=== PATIENT | male | born 1965 | race Caucasian/White ===

== ENCOUNTER 2024-08-25 05:47 | Day surgery (SDC) | payer OTHER, SELFPAY ==
[2024-08-25] VITALS (14 sets, daily range): BP systolic 112–135; BP diastolic 58–98; PULSE 58–90; RESP 16–18; TEMP 36.2–36.8; O2SAT 96–100; BMI 23.4
--- NOTE | 2024-08-25 05:57 | EKG12_ITS ---
Test Reason : PREOP Blood Pressure : */* mmHG Vent. Rate : 56 BPM Atrial Rate : 56 BPM P-R Int : 148 ms QRS Dur : 100 ms QT Int : 404 ms P-R-T Axes : 76 74 70 degrees QTcB Int : 389 ms Sinus bradycardia Otherwise normal ECG No previous ECGs available Confirmed by Hernandez Guidry ([id number]), multimedia editor PHOEBE ANNE ([id number]) on 08/27/2024 7:02:43 AM Referred By: Herbert De La Fuente Confirmed By: Hernandez Guidry
[2024-08-25] MEDS: 0.9% Normal Saline (1000mL) 1,000 ML 15 ML IV (06:47)
--- NOTE | 2024-08-25 06:58 | PCM.PRE.AN2 ---
ASA Classification* ASA Classification ASA Classification: 2 Assessment & Plan Anesthesia* Anesthesia Assessment Anesthesia Assessment: Discussed sedation and/or anesthesia options, risks, benefits, and alternatives with patient/parents/legal guardian/POA. Questions invited. The patient/parents/legal guardian/POA seems to understand and agrees to proceed with anesthesia plan. Reviewed the physical assessment, medical history, allergy history and patient home medications list prior to surgery/procedure/anesthetic and documented any changes. Performed airway and anesthesia risk assessments. 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 When Was Last Pacemaker Check QUESTION #4 FULL TEXT: You/Your Family Experience fever (hyperthermia) with Anesthesia Last Oral Intake Last Oral intake: Last Oral Intake NPO since 19:00 08/25/24 06:32 Meds taken in AM with sips of No 08/25/24 06:32 water? Meds patient instructed to take am of surgery PONV PONV - software test specialist: PONV - software test specialist Female No 08/11/24 14:18 HX of Motion Sickness Yes 08/11/24 14:18 HX of N/V After Surgery No 08/11/24 14:18 Non-Smoker Yes 08/11/24 14:18 Duration of Surgery greater Yes 08/11/24 14:18 than 60 minutes Number of Risk Factors 3 08/11/24 14:18 PONV Score Moderate Risk 08/11/24 14:18 Height & Weight Height & Weight: Anesthesia: Height & Weight Height 5 ft 9 in 08/25/24 06:32 Weight: 72 kg 08/25/24 06:32 Body Mass Index (BMI) 23.4 08/25/24 06:32 Respiratory Assessment Respiratory Assessment - software test specialist: Respiratory Tract Infection Hx - software test specialist Hx Respiratory Tract Infection No 08/11/24 14:18 STOP Sleep Apnea STOP Sleep Apnea - software test specialist: STOP Sleep Apnea - software test specialist Hx Hypertension No 08/11/24 14:18 Hx Sleep Apnea No 08/11/24 14:18 CPAP BIPAP Do you snore loudly (louder No 08/11/24 14:18 than talking or can be heard Do you often feel tired/ No 08/11/24 14:18 fatigued/ sleepy during daytime? Has anyone observed you stop No 08/11/24 14:18 breathing during sleep? STOP Results Negative 08/11/24 14:18 QUESTION #5 FULL TEXT : Do you snore loudly (louder than talking or can be heard through closed doors)? 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 Specify any problems Hx of Preganancy in last 3 N/A 08/11/24 14:18 Months Nurse Filling Out Transfusion DSCHRIBER 08/11/24 14:18 & Questions: Date: 08/11/24 08/11/24 14:18 Time: 14:19 08/11/24 14:18 Patient unable to answer at this time (ie. confused, unrespo /Reproduction History /Reproductive History - software test specialist: /Reproductive Hx- software test specialist Hx Now No 08/11/24 14:18 Gestational Age (in weeks): EDC: Hx Hx Para Hx Section SAB No 08/11/24 14:18 Active Medications Active Medications: Current Medications Generic Name Dose Route Start Last Admin Trade Name Freq PRN Reason Stop Dose Admin Clindamycin Phosphate 900 mg in 50 mls @ 75 mls/hr 08/25/24 07:30 Cleocin IV 08/25/24 08:09 PREOP ONE Sodium Chloride 1,000 mls @ 15 mls/hr 08/25/24 06:15 08/25/24 06:47 IV 08/30/24 19:34 15 mls/hr .Q48H NABILA Administration Protocol [facility] Medical History Wears glasses Alcohol use Back pain Difficulty swallowing Non-smoker Leg cramps Left inguinal hernia Home Medications ?Medication ?Instructions ?Recorded ?Last Taken ?Type ascorbic acid (vitamin C) 500 mg 500 mg PO DAILY 08/11/24 Unknown History tablet (C-500) pediatric multivitamin no.76 1 tab PO DAILY 08/11/24 Unknown History (Flintstones Complete chewable tablet) Allergy/AdvReac Type Severity Reaction Status Date / Time Penicillins Allergy Hives Verified 08/25/24 06:31 Surgical History Hx of tonsillectomy Social History Smoking Status: Never smoker alcohol intake: current alcohol intake frequency: holidays/special occasions only Alcohol type: beer substance use type: does not use Review of Systems (Anesthesia) ROS Narrative System reviewed and no additional complaints, except as documented.
--- NOTE | 2024-08-25 07:18 | PCM.HP.STD ---
HPI - General General Date of Admission: 08/25/24 Date of Service: 08/25/24 Chief Complaint: Left inguinal hernia HPI Narrative BENJAMIN VENTURA, is a 59 M who presents for left inguinal hernia repair - poss bilateral PFSH Medical History Wears glasses Alcohol use Back pain Difficulty swallowing Non-smoker Leg cramps Left inguinal hernia Home Medications ?Medication ?Instructions ?Recorded ?Last Taken ?Type ascorbic acid (vitamin C) 500 mg 500 mg PO DAILY 08/11/24 Unknown History tablet (C-500) pediatric multivitamin no.76 1 tab PO DAILY 08/11/24 Unknown History (Flintstones Complete chewable tablet) Allergy/AdvReac Type Severity Reaction Status Date / Time Penicillins Allergy Hives Verified 08/25/24 06:31 Surgical History Hx of tonsillectomy Social History Smoking Status: Never smoker alcohol intake: current alcohol intake frequency: holidays/special occasions only Alcohol type: beer substance use type: does not use Vital Signs Vital Signs Vital Signs: 08/25/24 06:32 08/25/24 06:32 08/25/24 06:59 Temperature 98.2 F 98.2 F Temperature Source Temporal Pulse Rate 58 L 58 L Respiratory Rate 18 18 Respiratory Pattern Normal Blood Pressure 116/71 116/71 Blood Pressure Mean 86 Blood Pressure Source Monitor Blood Pressure Position Semi-Fowlers Blood Pressure Location Right Arm Pulse Ox 99 99 Oxygen Delivery Method Room Air Weight Weight: 158 lb 11.725 oz Body Mass Index (BMI) 23.4 Physical Exam Const alert, oriented x3 and no apparent distress Assessment & Plan Assessment/Plan (1) Left inguinal hernia: PLAN: Plan robotic LIH repair - poss bilateral today Charges/Coding Visit Charges Inpatient E&M: 66873 Init Hosp L1
[2024-08-25] MEDS: Clindamycin 900 MG/50 ML BAG 75 MG IV (07:30)
[2024-08-25] MEDS: Gentamicin 80 MG/2 ML Vial (07:48)
[2024-08-25] MEDS: Bupiv/Epi 0.25% 30 ML Vial (09:25)
--- NOTE | 2024-08-25 09:48 | PCM.POST.ANE ---
Anesthesia: Postop Eval I Current Vital Signs Temperature: 97.2 F Pulse Rate: 87 Blood Pressure: 133/98 Respiratory Rate: 16 Pulse Ox: 98 Oxygen Delivery Method: Nasal Cannula (4) Oxygen Flow Rate (L/min): 4 Assessment Airway patent: Yes Spontaneous unlabored respirations: Yes Mental status: Calm and Asleep nausea: No Vomiting: No Anesthesia Complication: No Fluid Hydration Crystalloid volume administer (ml): 1,100 Total IV fluid infused: 1,100 Progress Note Anesthesia document: Postop Eval 1 completed: Yes
--- NOTE | 2024-08-25 09:52 | EX.PCM.DISCH ---
Discharge Instructions Diet Discharge Diet: Light diet - advance as tolerated Follow Up Care Test Results: Test results from this visit will be discussed in further detail at your follow-up appointment, if applicable. Discharge Plan Admission Primary Reason for Your Visit: Inguinal hernia repair surgery Attending Provider: Herbert De La Fuente Primary Care Provider: Care Physician,No Primary Instructions Print Language: Luxembourger Discharge Orders/Prescriptions Prescriptions: New oxycodone-acetaminophen [Percocet] 5-325 mg tablet 1 tab PO Q8H PRN (Reason: pain) 3 Days Qty: 10 0RF Continued Flintstones Complete Tablet,Chewable 1 tab PO DAILY ascorbic acid (vitamin C) [C-500] 500 mg tablet 500 mg PO DAILY Referrals / Follow Up: Care Physician,No Primary [Primary Care Provider] - Disposition Disposition (needs filled in before D/C Order can be placed): Home, Self Care
--- NOTE | 2024-08-25 09:55 | OP.PCM_ITS ---
Problems Associated Problem List Diagnoses (1) Bilateral inguinal hernia without obstruction or gangrene: Procedures Digestive 40xxx-49xxx: [id number] Lap ing hernia repair init Operative Report (Standard) Operative Information Date of Procedure: 08/25/24 Pre-Operative Diagnosis: Left inguinal hernia; possible bilateral Post-Operative Diagnosis: Bilateral inguinal hernia Surgery/Procedure Performed: Robotic assisted bilateral inguinal hernia repair with mesh multiple knife edge trimmer operator: Yes Machine Maintenance: David Hughes Tasks completed by administrative assistant data entry: Closing Additional surgical first assistant?: No Type of Anesthesia: General and Local RN Documented Start/Stop Times: Operation Date: 08/25/24 07:30 Case Time Into Pre-Op 08/25/24 06:13 Out of Pre-Op 08/25/24 07:25 Anesthesia Start 08/25/24 07:28 Into Room 08/25/24 07:28 Procedure Start 08/25/24 07:48 Procedure End 08/25/24 09:35 Anesthesia End 08/25/24 09:42 Out of Room 08/25/24 09:42 Into Recovery 08/25/24 09:45 Procedure Start Time: 07:48 Procedure Stop Time: 09:35 Select all DRAINS/GRAFTS/IMPLANTS that apply: Implanted device Implanted device details: ProGrip 15 x 10 mesh x 2 Special Medications: Ancef IV Estimated Blood Loss: 10 mL Specimen collected: No Description of surgery: The patient is a 59-year-old male who was recently seen through the office with a left inguinal hernia. I did not appreciate a right inguinal hernia however he was complaining of periodic right inguinal pain. I offered him a robotic assisted left inguinal hernia repair with mesh with possible bilateral repair. We discussed the details of the planned procedure including the risks benefits and alternatives. He wishes to proceed. The patient was brought to the operating today following informed consent preoperative antibiotics were given and a timeout was performed. He was placed supine on the operative table with arms initially outstretched on arm boards. A general anesthesia was induced. His arms were comfortably tucked at his side. The abdomen was then prepped and draped in the usual sterile manner. An 8 mm incision was made just above the umbilicus which a 5 mm trocar was placed optically. This was placed without incident. Once in place the abdomen is then fully insufflated with CO2 gas. No signs of bowel or vascular injury were noted once a 5 mm scope was inserted. Next an 8 mm trocar was placed on the right side of the abdomen along with another 8 mm trocar on the left side of the abdomen. Both of these were placed under direct visualization without difficulty. Finally the original 5 mm trocar was switched to an 8 mm trocar. The da Ubaldo robot was then brought into position and the trocars were docked. Camera was inserted through the midline incision. A ProGrasp was used in the left and scissors were placed on the right. The left inguinal hernia was identified. There was also a right inguinal hernia as well. Our plan was to proceed with bilateral repair. The left side was repaired first. This was performed by incising the peritoneum and a medial to lateral direction using scissors and electrocautery. A set peritoneal plane was then developed Juan Carlos's ligament was dissected out medially. The cord structures were identified this was a direct hernia this was reduced once this was reduced and sufficient dissection was performed, a ProGrip mesh was inserted. This was laid into position this laid nicely the peritoneum was then closed using V-Loc suture in a running manner this closed the peritoneum nicely. We then turned our attention to the right side. The peritoneum was incised in a lateral to medial direction again a set peritoneal plane was developed. Juan Carlos's ligament was dissected out medially. This was more of a larger indirect hernia. The hernia sac was off of the cord structures and the sac was eventually able to be reduced. The patient had a very large cord lipoma which was extracted. This was later removed through one of the trocar sites using a bag. Once sufficient dissection was performed a ProGrip 10 x 15 mesh was selected it was laid into position the peritoneum was then closed again in a running manner using a V-Loc suture. The there was an opening in the peritoneum that required Vicryl to close this defect. Once this was performed this was closed nicely Surgical Findings: Bilateral inguinal hernias Complications Complications: No Admit VTE Documentation VTE Present on Admission: No VTE Mechan Device Prophylaxis: SCD's VTE Pharm Prophylaxis ordered?: No Reason prophylaxis not ordered: Treatment Not Indicated
--- NOTE | 2024-08-25 09:55 | PCM.POSTANE2 ---
Anesthesia Postop Eval I Sum Postop Eval Completion status Anesthesia document: Postop Eval 1 completed: Yes Anesthesia Postop Eval I Summary Anesthesia Postop Eval I Summary: Anesthesia Postop Eval I: Assessment Summary Airway patent yes Spontaneous unlabored yes respirations Mental status clear nausea no Vomiting no Anesthesia Postop Eval I: Fluid Summary Crystalloid volume administer 1000 (ml) Colloids volume administered ( ml) Blood Product volume administered (ml) Total IV fluid infused 1100 Anesthesia Postop Eval I: Summary Notes Anesthesia Complication none Anesthesia Complication Comment: Post-operative progress note report to Rn Anesthesia: Postop Eval II Evaluation Mental status: Asleep Pain Level: 0 nausea: No Vomiting: No
--- NOTE | 2024-08-25 11:55 | DCINST_ITS ---
Discharge Instructions Diet Discharge Diet: Light diet - advance as tolerated Activity Discharge Activity: Return to Normal Activity May shower in (days): 1 Ice area for (Minutes): 30 Lifting Restrictions: no lifting over 20 pounds for 6 weeks Dressing / Incision Call your doctor if your incision/area has: Continuous Slow Oozing, Sudden Increased Bleeding, Increased Pain/ Swelling, Increased Redness, Foul Smelling Discharge and Swelling at the incision site Call your doctor if you observe: Fever of 101 or Higher Cleanse incision/area with: Soap & Water Follow Up Care Please Follow Up With: Herbert De La Fuente MD When: 2 weeks Test Results: Test results from this visit will be discussed in further detail at your follow- up appointment, if applicable. Discharge Plan Admission Primary Reason for Your Visit: Inguinal hernia repair surgery Attending Provider: Herbert De La Fuente Primary Care Provider: Care Physician,Silvia Primary Instructions Print Language: Mohawk Discharge Orders/Prescriptions Prescriptions: New oxycodone-acetaminophen [Percocet] 5-325 mg tablet 1 tab PO Q8H PRN (Reason: pain) 3 Days Qty: 10 0RF Continued Flintstones Complete Tablet,Chewable 1 tab PO DAILY ascorbic acid (vitamin C) [C-500] 500 mg tablet 500 mg PO DAILY Referrals / Follow Up: Care Physician,No Primary [Primary Care Provider] - Disposition Disposition (needs filled in before D/C Order can be placed): Home, Self Care
== END 2024-08-25 15:20 | disposition home or self-care (01) ==
LOC: SDC 05:57 → AC 06:10
PROVIDERS: Referring Provider Surgery; Visit Provider Surgery
PROC: (CPT 49650; principal; 2024-08-25 07:10)
DX: K40.20 Bilateral inguinal hernia, without obstruction or gangrene, not specified as recurrent (principal)
CPT/HCPCS: 49650; S2900; 00840; 93005; J2405